=== PATIENT | male | born 1990 | race Caucasian/White ===

== ENCOUNTER 2023-11-16 21:36 | Emergency (ER) | payer OTHER, SELFPAY ==
[2023-11-16 21:37] VITALS: BP 158/95
[2023-11-16 21:57] LABS: % Basophils 0.8 % (0-2); % Eosinophils 0.7 % (0-6); % Immature Granulocytes 0.1 % (0-0.5); % Monocytes 8.8 % (1.7-9.3); % Neutrophils 52.6 % (42.2-75.2); Absolute Basophils 0.1 10^3/uL (0-0.2); Absolute Eosinophils 0.1 10^3/uL (0-0.7); Absolute Lymphocytes 2.7 10^3/uL (1.2-3.4); Absolute Monocytes 0.6 10^3/uL (0.1-0.6); Absolute Neutrophils 3.8 10^3/uL (1.4-6.5); Hematocrit 41.1 % (39.0-52.0); Hemoglobin 14.7 g/dL (13.0-18.0); Mean Corp Hgb Conc. 35.8 g/dL (33.0-37.0); Mean Corpuscular Hgb 29.6 pg (27.0-31.0); Mean Corpuscular Volume 82.9 fL (80.0-94.0); Mean Platelet Volume 9.7 fL (7.4-10.4); Nucleated Red Blood Cells % 0 % (-); Platelet Count 242 10^3/uL (130-400); Red Blood Cell Count 4.96 10^6/uL (4.70-6.10); Red Cell Dist. Width 12.2 % (11.5-14.5); White Blood Cell Count 7.2 10^3/uL (4.8-10.8)
[2023-11-16 22:15] LABS: ALT (SGPT) 18 U/L (0-50); AST (SGOT) 23 U/L (17-59); Albumin 5.1 g/dl (3.5-5.0); Alkaline Phosphatase 47 U/L (38-126); Blood Urea Nitrogen 11 mg/dl (9-20); Calcium 10.7 mg/dl (8.4-10.2); Carbon Dioxide 28 mmol/L (22-30); Chloride 99 mmol/L (98-107); Glucose 106 mg/dl (70-99); Potassium 4.5 mmol/L (3.5-5.1); Sodium 137 mmol/L (135-145); Total Protein 7.8 g/dl (6.3-8.2); eGFR > 60.00
[2023-11-16 22:21] LABS: Troponin I < 0.012 ng/ml
[2023-11-16 22:42] VITALS: BP 135/93
--- NOTE | 2023-11-16 23:21 | ED.GENMED ---
History of Present Illness
General
Chief Complaint: Breathing Problem
Source: patient
Exam Limitations: none
Time Seen by Provider: 11/16/23 23:11
Travel History
Have you had any contact with someone who has COVID-19?: No
Do you have any symptoms of coronavirus? Fever > 100 degrees, chills, cough, shortness of breath, sore throat, loss of taste or smell, muscle aches, or headache?: No
History of Present Illness
History of Present Illness:
This is aa 33 year old male that comes in with c/o SOB. States that this has been on ongoing issue since August. States that it is just not going away. States that this started in August when they were on vacation . States that right now he is
feeling better. State that he came home from work and he felt bloated but he went on a run. States that he ran 2 miles and he didn't have any trouble. States that they were sitting at the table and it felt like he was breathing through a straw.
States that he also had some diarrhea. Denies any fever,chills, chest pain, abd pain, nausea, vomiting, headache, dizziness, urinary burning.
Past History
Past History
ED Past Medical History: Psychiatric (Anxiety); Negative Asthma, HTN or NIDDM
ED Past Surgical History: Orthopedic (right ACL repair Right tibia repair)
Social History
Tobacco: Smoker (occasional)
Alcohol: Occasional
Personal: Single
Living: with family
Review of Systems
Review of Systems
All Other Systems: ROS reviewed and negative except as documented in HPI and ROS
Constitutional: Reports no symptoms; Denies fever or chills
EENT: Reports no symptoms
Respiratory: Reports trouble breathing; Denies cough
Cardiac: Reports no symptoms; Denies chest pain
ABD/GI: Reports diarrhea and other (felt bloated); Denies abdominal pain, nausea or vomiting
: Reports no symptoms; Denies dysuria, frequency or urgency
Musculoskeletal: Reports no symptoms
Skin: Reports no symptoms
Neurological: Reports no symptoms; Denies dizzy or headache
Psychiatric: Reports no symptoms
Phy Exam
General Physical Exam
General Presentation: well appearing and no apparent distress
General age: appears stated age
General Skin: warm and dry
General Habitus: normal
General Mental: alert
General Hydration: appears well hydrated
ENT Exam
ENT Exam: TM's normal, pharynx normal and neck supple
Eye Exam
Eye Exam: EOMI
Cardiovascular Exam
Cardiovascular Exam: regular rate/rhythm, no edema, no murmur and normal peripheral pulses
Pulmonary Exam
Pulmonary Exam: lungs clear, no respiratory distress, no rales, chest non tender, no crackles, no rhonchi, no wheezing and no cough
Gastrointestinal Exam
Gastrointestinal Exam: normal bowel sounds, non tender, soft, no organomegaly, no pulsatile mass and non distended
Musculoskeletal Exam
Musculoskeletal Exam: full ROM and no edema
Skin Exam
Skin Exam: normal color, warm/dry, no rash and no petechia
Psychiatric Exam
Psychiatric Exam: normal mood/affect
Course
Orders/Labs/Results
Orders:
Orders
11/16/23 21:40
Electrocardiogram (*1) Urgent
Reason for Study: Shortness of Breath
EKG- Treatment ONCE
11/16/23 21:52
Complete Blood Count/With Diff Urgent
Comprehensive Metabolic Panel Urgent
TSH Reflex To Free T4 Urgent
Comment: ADD ON
Troponin I Urgent
11/16/23 23:20
Add On- LAB Urgent
Tests Added?: TSH with reflex free T4
CR Chest - 2 Views Urgent
Comment:
Reason For Exam: SOB
Abnormal Lab Results
11/16/23
21:52
Glucose 106 H mg/dl
(70-99)
Calcium 10.7 H mg/dl
(8.4-10.2)
Albumin 5.1 H g/dl
(3.5-5.0)
11/16/23 21:52
11/16/23 21:52
Glucose nonfasting. Calcium slightly elevated. Troponin <0.012
Vital Signs
Initial and Last Documented VS:
Initial Vital Signs
Temp Pulse Resp BP Pulse Ox
98.2 F 80 16 158/95 99
11/16/23 21:37 11/16/23 21:37 11/16/23 21:37 11/16/23 21:37 11/16/23 21:37
Last Documented Vital Signs
Temp Pulse Resp BP Pulse Ox
98.2 F 67 20 135/93 97
11/16/23 21:37 11/16/23 22:42 11/16/23 22:42 11/16/23 22:42 11/16/23 22:42
MDM/Problems Addressed
Differential Diagnosis Includes:
GERD, Anxiety
MDM/Problems Addressed:
This is a 33 year old male that comes in with c/o difficulty breathing. States that this has been on and off since August. States that tonight after he got home from work he went for a run of 2 miles. States that he felt bloated and not really
hungry. States that he then felt like he was breathing through a straw.
Will get lab and Chest x-ray.
Back into see patient. Explained that his Chest X-ray is normal. His Troponin is normal and explained that he gave himself his own stress test. 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
Decree. Patient to follow up with the family doctor. Return with any concerns.
Chronic conditions affecting care:
Anxiety
Acute Exacerbation and/or Progression of Chronic Illness:
Anxiety
*Radiology
Radiology exam reviewed: preliminary read by ED provider (Chest- Negative for active disease. )
*Pulse Oximetry
Patient hypoxic: no
*EKG
Interpreted by ED Provider?: Yes
Heart Rate: 62
Rate: normal
Rhythm: sinus
[place]: normal axis
Interval: normal interval
QRS Pattern: normal QRS
Ischemia: no ischemia
*Standards Engineer Interpretation
Rate: normal
Heart Rate: 61
Rhythm: sinus
*Critical Care Note
Total Time (30-74mins, 75-104mins- exclusive of procedures): Not Applicable
ED Attending Note
-
Portions of this chart may have been created with voice recognition software.� Occasional wrong word or��sound alike� substitutions may have occurred due to the inherent limitations of voice recognition software.
Discharge Plan
Departure
Patient Disposition: Home (Routine Discharge)
Date of Disposition: 11/17/23
Time of Disposition: 00:29
Patient with high blood pressure during this ER visit?: Yes
Condition: Good
Covid-19: Not Applicable
Discharge Problem:
Anxiety, SOB (shortness of breath)
Instructions: Anxiety, Adult (DC), Shortness of Breath, Adult ED, BLOOD PRESSURE
Prescriptions:
No Action
No Current Medications
0
Referrals:
Flory Nur MD [Family Provider] - Call in 1-3 days for appt
Activity Restrictions/Additional Instructions:
As discussed, your blood work shows that your Troponin which is specific for the heart is normal. Your Chest x-ray is normal. This may be all anxiety driven. Please follow up with the family doctor for recheck. IF YOU HAVE ANY OTHER CONCERNS PLEASE
RETURN TO THE EMERGENCY ROOM.
Interventions
Interventions:
*Risk Screen - Suicide Last Done: 11/16/23 22:38
*General Assessment Last Done: 11/16/23 21:37
*Neglect/Abuse Screening Last Done: 11/16/23 22:38
ED- Fall Risk Assessment Last Done: 11/16/23 22:38
*ED COVID-19 Vaccine History Last Done: 11/16/23 22:38
ED- Cardiac Assessment Last Done: 11/16/23 22:38
ED- Pulmonary Assessment Last Done: 11/16/23 22:38
Discharge Date and Time
Print Language: FAROESE
[2023-11-17 00:27] LABS: TSH Reflex To Free T4 1.84 uIU/ml (0.47-4.68)
[2023-11-17 00:55] VITALS: BP 124/81
[2023-11-17 00:56] VITALS: BP 124/81
== END 2023-11-17 00:56 | disposition home or self-care (01) ==
LOC: EMR 21:36
PROVIDERS: Emergency Medicine; EMERGENCY PHYSICIAN Student in an Organized Health Care Education/Training Program; FAMILY PHYSICIAN Internal Medicine
DX: R06.02 Shortness of breath (principal); F41.9 Anxiety disorder, unspecified; F17.200 Nicotine dependence, unspecified, uncomplicated; R03.0 Elevated blood-pressure reading, without diagnosis of hypertension
CPT/HCPCS: 99285; 71046; 80053; 84443; 84484; 85025; 93005